=== PATIENT | male | born 1930 | race Caucasian/White ===

== ENCOUNTER 2016-08-25 07:44 | Inpatient (IN) | payer OTHER ==
[~2016-08-25] VITALS: Ht 167.6 cm; Wt 83.5 kg
[~2016-08-25 07:44] MED LIST: ALBU8.5H IH; AMLO2.5T PO; ASPI-1061 PO; ATOR20TA65 PO; FAMO20TA8 PO; METF850T2 PO; TAMS0.4C32 PO; TIOT185 IH
[2016-08-25 08:17] LABS: GLUCOSE,POINT OF CARE 170 MG/DL (70-110)
[2016-08-25 09:03] LABS: BASOPHILS % (AUTO) 0.1 % (0.0-2.0); EOSINOPHILS % (AUTO) 1.1 % (1.0-6.0); HEMATOCRIT 38.5 % (41-53); HEMOGLOBIN 12.2 g/dL (13.5-17.5); LYMPHOCYTES # (AUTO) 2.9 K/uL (1.0-4.8); LYMPHOCYTES % (AUTO) 15.2 % (22.0-44.0); MEAN CORPUSCULAR HEMOGLOBIN 28.1 pg (26.0-34.0); MEAN CORPUSCULAR HGB CONC 31.7 G/dL (31.0-37.0); MEAN CORPUSCULAR VOLUME 89 fL (80-100); MONOCYTES # (AUTO) 1.6 K/uL (0.1-1.0); MONOCYTES % (AUTO) 8.4 % (2.0-9.0); NEUTROPHILS # (AUTO) 14.3 K/uL (1.8-7.7); NEUTROPHILS % (AUTO) 75.2 % (40.0-70.0); PLATELET COUNT (AUTO) 259 K/uL (150-450); RED BLOOD CELL COUNT(AUTO) 4.34 MIL/uL (4.50-5.90); RED CELL DISTRIBUTION WIDTH 16.1 % (11.5-14.5); WHITE BLOOD COUNT (AUTO) 19.1 K/uL (4.5-11.0)
[2016-08-25 09:12] LABS: ANION GAP 8 mmol/L (8-16); CARBON DIOXIDE 26 mmol/L (22-29); CHLORIDE 101 mmol/L (98-107); GLOMERULAR FILTR. RATE CALC > 60 mL/min (>60); SODIUM SERUM 135 mmol/L (136-145); UREA NITROGEN, BLOOD 19 mg/dL (7-18)
[2016-08-25 09:25] LABS: B-TYPE NATRIURETIC PEPTIDE 339 pg/mL (0-100)
[2016-08-25 09:37] LABS: ALANINE AMINOTRANSFERASE 43 U/L (12-78); ALBUMIN 3.5 g/dL (3.4-5.0); ASPARTATE AMINOTRANSFERASE 24 U/L (15-37); BILIRUBIN,TOTAL 0.7 mg/dL (0.1-1.0); CREATINE KINASE MB 1.7 ng/mL (0-5); CREATINE KINASE, TOTAL 135 U/L (39-308); PROTHROMBIN TIME 10.3 SEC (9.4-11.6); TOTAL PROTEIN, SERUM 7.7 g/dL (6.4-8.2)
[2016-08-25] MEDS ORDERED: ALBUTEROL SULFATE 2.5 MG/0.5 ML NEB SOLUTION NEB ONE (10:15)
[2016-08-25] MEDS ORDERED: AZITHROMYCIN 500 MG/NS 250 ML IV ONE (10:15)
[2016-08-25] MEDS ORDERED: IPRATROPIUM BROMIDE 0.5 MG/2.5 ML NEB SOLUTION NEB ONE (10:15)
[2016-08-25] MEDS ORDERED: CefTRIAXone 1 GM/DEXTROSE 50 ML IV ONE (10:15)
[2016-08-25] MEDS ORDERED: 0.9% SODIUM CHLORIDE 10 ML SYRINGE IVP PRN (10:45)
[2016-08-25] MEDS ORDERED: ACETAMINOPHEN 325 MG TABLET PO PRN ×2 (10:45→15:00)
[2016-08-25 10:57] LABS: APPEARANCE,URINE CLEAR (CLEAR); GLUCOSE, URINE (UA) NEGATIVE (NEGATIVE); KETONES,URINE NEGATIVE (NEGATIVE); LEUKOCYTE ESTERASE ,URINE NEGATIVE (NEGATIVE); OCCULT BLOOD,URINE NEGATIVE (NEGATIVE); PROTEIN,URINE POS 1+ (NEGATIVE)
[2016-08-25 10:59] LABS: ADD UA MICROSCOPIC YES
[2016-08-25 11:02] LABS: RBC,URINE None Seen /HPF (0-2); SQUAMOUS EPITHELIAL CELL,UR Rare /LPF (None Seen); WBC,URINE 0-2 /HPF (0-5)
[2016-08-25 11:25] VITALS: BP 156/90
[2016-08-25 12:45] VITALS: BP 162/85
[2016-08-25] MEDS ORDERED: IPRATROPIUM BROMIDE 0.5 MG/2.5 ML NEB SOLUTION NEB PRN ×2 (15:00)
[2016-08-25] MEDS ORDERED: DEXTROSE 50%-WATER 25 GM/50 ML SYRINGE IVP PRN (15:00)
[2016-08-25] MEDS ORDERED: ALBUTEROL SULFATE 2.5 MG/0.5 ML NEB SOLUTION NEB PRN ×2 (15:00)
[2016-08-25] MEDS ORDERED: MAGNESIUM HYDROXIDE SUSPENSION 30 ML UDCUP PO PRN (15:00)
[2016-08-25] MEDS ORDERED: HYDROCODONE/ACETAMINOPHEN 5-325 MG TABLET PO PRN (15:00)
[2016-08-25] MEDS ORDERED: ONDANSETRON HCL 4 MG/2 ML VIAL IVP PRN (15:00)
[2016-08-25] MEDS ORDERED: BISACODYL 10 MG RECTAL RECTAL SUPPOSITORY PR PRN (15:00)
[2016-08-25] MEDS: INSULIN ASPART 100 UNITS/ML SQ PRN ×2 (17:17→21:59)
[2016-08-25] MEDS: HEPARIN SODIUM,PORCINE 5,000 UNITS/ML VIAL SQ SCH (17:21)
[2016-08-25 17:24] VITALS: BP 143/75
[2016-08-25] MEDS: MethylPREDNISolone SOD SUCC 125 MG/2 ML VIAL IVP SCH (17:33)
[2016-08-25 19:29] VITALS: BP 120/58
[2016-08-25] MEDS: MORPHINE SULFATE 4 MG/ML SYRINGE IVP PRN (19:38)
[2016-08-25] MEDS: ALBUTEROL SULFATE 2.5 MG/0.5 ML NEB SOLUTION NEB SCH (20:40)
[2016-08-25] MEDS: IPRATROPIUM BROMIDE 0.5 MG/2.5 ML NEB SOLUTION NEB SCH (20:40)
[2016-08-25] MEDS: GuaiFENesin/CODEINE [SUGAR FREE] 200-20MG/10 ML SYRUP UDCUP PO PRN (21:56)
[2016-08-25] MEDS: DOCUSATE SODIUM 100 MG CAPSULE PO SCH (21:56)
[2016-08-25] MEDS ORDERED: -PHARMACY VACCINE NOTE- MISC ONE ×2 (23:15)
[2016-08-25 23:49] VITALS: BP 124/89
[2016-08-26] MEDS: HEPARIN SODIUM,PORCINE 5,000 UNITS/ML VIAL SQ SCH ×3 (00:09→16:34)
[2016-08-26] MEDS: MethylPREDNISolone SOD SUCC 125 MG/2 ML VIAL IVP SCH ×4 (00:09→17:47)
[2016-08-26] MEDS: ZOLPIDEM TARTRATE 5 MG TABLET PO PRN ×2 (00:10→20:44)
[2016-08-26 04:41] VITALS: BP 123/58
[2016-08-26] MEDS: INSULIN ASPART 100 UNITS/ML SQ PRN ×4 (06:03→20:46)
[2016-08-26 06:37] LABS: BASOPHILS % (AUTO) 0.2 % (0.0-2.0); EOSINOPHILS % (AUTO) 0 % (1.0-6.0); HEMATOCRIT 36.3 % (41-53); HEMOGLOBIN 11.6 g/dL (13.5-17.5); LYMPHOCYTES # (AUTO) 1.7 K/uL (1.0-4.8); LYMPHOCYTES % (AUTO) 11.2 % (22.0-44.0); MEAN CORPUSCULAR HEMOGLOBIN 28.6 pg (26.0-34.0); MEAN CORPUSCULAR VOLUME 89 fL (80-100); MONOCYTES # (AUTO) 0.1 K/uL (0.1-1.0); MONOCYTES % (AUTO) 0.7 % (2.0-9.0); NEUTROPHILS # (AUTO) 13.3 K/uL (1.8-7.7); PLATELET COUNT (AUTO) 253 K/uL (150-450); RED BLOOD CELL COUNT(AUTO) 4.07 MIL/uL (4.50-5.90); RED CELL DISTRIBUTION WIDTH 15.5 % (11.5-14.5); WHITE BLOOD COUNT (AUTO) 15.2 K/uL (4.5-11.0)
[2016-08-26 06:56] LABS: NEUTROPHILS % (AUTO) 87.9 % (40.0-70.0)
[2016-08-26 07:09] VITALS: BP 129/70
[2016-08-26 07:12] LABS: ALANINE AMINOTRANSFERASE 52 U/L (12-78); ANION GAP 13 mmol/L (8-16); ASPARTATE AMINOTRANSFERASE 29 U/L (15-37); BILIRUBIN,TOTAL 0.6 mg/dL (0.1-1.0); CALCIUM, TOTAL 8.3 mg/dL (8.8-10.5); CARBON DIOXIDE 24 mmol/L (22-29); CHLORIDE 98 mmol/L (98-107); CREATININE 1.09 mg/dL (0.60-1.30); GLOMERULAR FILTR. RATE CALC > 60 mL/min (>60); SODIUM SERUM 135 mmol/L (136-145); TOTAL PROTEIN, SERUM 7.1 g/dL (6.4-8.2); UREA NITROGEN, BLOOD 29 mg/dL (7-18)
[2016-08-26] MEDS: ALBUTEROL SULFATE 2.5 MG/0.5 ML NEB SOLUTION NEB SCH ×3 (08:00→19:35)
[2016-08-26] MEDS: IPRATROPIUM BROMIDE 0.5 MG/2.5 ML NEB SOLUTION NEB SCH ×3 (08:00→19:35)
[2016-08-26] MEDS: PANTOPRAZOLE SODIUM 40 MG/VIAL IVP SCH (08:57)
[2016-08-26] MEDS: DOCUSATE SODIUM 100 MG CAPSULE PO SCH ×2 (08:58→20:44)
[2016-08-26] MEDS: MORPHINE SULFATE 4 MG/ML SYRINGE IVP PRN ×2 (08:59→20:07)
[2016-08-26] MEDS: GuaiFENesin/CODEINE [SUGAR FREE] 200-20MG/10 ML SYRUP UDCUP PO PRN ×2 (09:00→16:35)
[2016-08-26] MEDS ORDERED: SODIUM CHLORIDE 0.9% 500 ML IV ONE (10:39)
[2016-08-26] MEDS: AZITHROMYCIN 500 MG/NS 250 ML IV SCH (10:46)
[2016-08-26 11:09] VITALS: BP 130/74
[2016-08-26] MEDS: CefTRIAXone SODIUM 2 GM in DEXTROSE 5%-WATER 50 ML IV SCH (12:15)
[2016-08-26 16:26] VITALS: BP 138/69
[2016-08-26 17:33] LABS: GLUCOSE COMMENT 1 Received Meds; GLUCOSE,POINT OF CARE 243 MG/DL (70-110)
[2016-08-26] MEDS ORDERED: INSULIN ASPART 100 UNITS/ML SQ ONE (17:45)
[2016-08-26] MEDS ORDERED: 0.9% SODIUM CHLORIDE 10 ML SYRINGE IVP PRN (18:30)
[2016-08-26 19:02] LABS: GLUCOSE COMMENT 1 Received Meds; GLUCOSE,POINT OF CARE 200 MG/DL (70-110)
[2016-08-26 20:00] VITALS: BP 128/75
[2016-08-26 20:02] LABS: GLUCOSE COMMENT 1 Received Meds; GLUCOSE,POINT OF CARE 390 MG/DL (70-110)
[2016-08-27 00:01] VITALS: BP 114/84
[2016-08-27] MEDS: GuaiFENesin/CODEINE [SUGAR FREE] 200-20MG/10 ML SYRUP UDCUP PO PRN ×4 (00:14→20:58)
[2016-08-27] MEDS: MethylPREDNISolone SOD SUCC 125 MG/2 ML VIAL IVP SCH ×5 (00:15→23:24)
[2016-08-27] MEDS: HEPARIN SODIUM,PORCINE 5,000 UNITS/ML VIAL SQ SCH ×4 (00:15→23:24)
[2016-08-27] MEDS: MORPHINE SULFATE 4 MG/ML SYRINGE IVP PRN ×3 (04:51→19:29)
[2016-08-27 05:26] VITALS: BP 140/74
[2016-08-27] MEDS: INSULIN ASPART 100 UNITS/ML SQ PRN ×4 (06:04→20:59)
[2016-08-27 07:22] LABS: GLUCOSE COMMENT 1 Received Meds; GLUCOSE,POINT OF CARE 287 MG/DL (70-110)
[2016-08-27 08:10] VITALS: BP 156/80
[2016-08-27] MEDS: IPRATROPIUM BROMIDE 0.5 MG/2.5 ML NEB SOLUTION NEB SCH ×3 (09:04→20:09)
[2016-08-27] MEDS: ALBUTEROL SULFATE 2.5 MG/0.5 ML NEB SOLUTION NEB SCH ×3 (09:04→20:09)
[2016-08-27] MEDS: PANTOPRAZOLE SODIUM 40 MG/VIAL IVP SCH (09:05)
[2016-08-27] MEDS: DOCUSATE SODIUM 100 MG CAPSULE PO SCH ×2 (09:05→20:58)
[2016-08-27] MEDS: AZITHROMYCIN 500 MG/NS 250 ML IV SCH (10:35)
[2016-08-27 11:03] VITALS: BP 114/60
[2016-08-27] MEDS: CefTRIAXone SODIUM 2 GM in DEXTROSE 5%-WATER 50 ML IV SCH (12:04)
[2016-08-27] MEDS ORDERED: AMLO-511 PO (13:58)
[2016-08-27 15:39] VITALS: BP 120/69
[2016-08-27 15:58] LABS: EOSINOPHILS % (AUTO) 0 % (1.0-6.0); HEMATOCRIT 35.6 % (41-53); HEMOGLOBIN 11.3 g/dL (13.5-17.5); LYMPHOCYTES # (AUTO) 1.4 K/uL (1.0-4.8); LYMPHOCYTES % (AUTO) 5.6 % (22.0-44.0); MEAN CORPUSCULAR HEMOGLOBIN 28.2 pg (26.0-34.0); MEAN CORPUSCULAR HGB CONC 31.6 G/dL (31.0-37.0); MEAN CORPUSCULAR VOLUME 89 fL (80-100); MONOCYTES # (AUTO) 1.1 K/uL (0.1-1.0); MONOCYTES % (AUTO) 4.5 % (2.0-9.0); NEUTROPHILS # (AUTO) 22.5 K/uL (1.8-7.7); PLATELET COUNT (AUTO) 286 K/uL (150-450); RED BLOOD CELL COUNT(AUTO) 3.99 MIL/uL (4.50-5.90); RED CELL DISTRIBUTION WIDTH 15.4 % (11.5-14.5); WHITE BLOOD COUNT (AUTO) 25.1 K/uL (4.5-11.0)
[2016-08-27] MEDS: BENZONATATE 100 MG CAPSULE PO SCH ×2 (16:00→23:23)
[2016-08-27 16:03] LABS: NEUTROPHILS % (AUTO) 89.9 % (40.0-70.0)
[2016-08-27 16:10] LABS: CALCIUM, TOTAL 8.1 mg/dL (8.8-10.5); CREATININE 1.26 mg/dL (0.60-1.30); POTASSIUM 3.9 mmol/L (3.5-5.1)
[2016-08-27 16:15] LABS: ALBUMIN 3.3 g/dL (3.4-5.0); BILIRUBIN,TOTAL 0.2 mg/dL (0.1-1.0); TOTAL PROTEIN, SERUM 7.3 g/dL (6.4-8.2)
[2016-08-27 16:20] LABS: RBC MORPHOLOGY COMMENT ABNORMAL RBC MORPH
[2016-08-27 18:07] LABS: GLUCOSE COMMENT 1 Received Meds; GLUCOSE,POINT OF CARE 293 MG/DL (70-110)
[2016-08-27 18:18] LABS: GLUCOSE COMMENT 1 Received Meds; GLUCOSE,POINT OF CARE 489 MG/DL (70-110)
[2016-08-27 18:18] LABS: GLUCOSE,POINT OF CARE 390 MG/DL (70-110)
[2016-08-27] MEDS ORDERED: IOVERSOL 350 MG/ML 100 ML VIAL ONE (18:26)
[2016-08-27 20:02] VITALS: BP 147/65
[2016-08-27] MEDS: ZOLPIDEM TARTRATE 5 MG TABLET PO PRN (23:28)
[2016-08-28] VITALS (7 sets, daily range): BP systolic 124–146; BP diastolic 69–96
[2016-08-28] MEDS: MethylPREDNISolone SOD SUCC 125 MG/2 ML VIAL IVP SCH ×4 (05:46→23:28)
[2016-08-28] MEDS: INSULIN ASPART 100 UNITS/ML SQ PRN ×3 (05:49→20:22)
[2016-08-28] MEDS: GuaiFENesin/CODEINE [SUGAR FREE] 200-20MG/10 ML SYRUP UDCUP PO PRN ×3 (05:53→23:29)
[2016-08-28] MEDS: HEPARIN SODIUM,PORCINE 5,000 UNITS/ML VIAL SQ SCH ×3 (08:07→23:28)
[2016-08-28] MEDS: BENZONATATE 100 MG CAPSULE PO SCH ×3 (08:07→23:28)
[2016-08-28] MEDS: DOCUSATE SODIUM 100 MG CAPSULE PO SCH ×2 (08:07→20:10)
[2016-08-28] MEDS: ALBUTEROL SULFATE 2.5 MG/0.5 ML NEB SOLUTION NEB SCH ×3 (09:20→20:18)
[2016-08-28] MEDS: IPRATROPIUM BROMIDE 0.5 MG/2.5 ML NEB SOLUTION NEB SCH ×3 (09:20→20:18)
[2016-08-28] MEDS: PANTOPRAZOLE SODIUM 40 MG/VIAL IVP SCH (09:48)
[2016-08-28] MEDS: AZITHROMYCIN 500 MG/NS 250 ML IV SCH (09:48)
[2016-08-28] MEDS: CefTRIAXone SODIUM 2 GM in DEXTROSE 5%-WATER 50 ML IV SCH (09:48)
[2016-08-28] MEDS ORDERED: FUROSEMIDE 40 MG/4 ML VIAL IVP ONE (12:30)
[2016-08-28 16:12] LABS: BASOPHILS % (AUTO) 0.2 % (0.0-2.0); EOSINOPHILS % (AUTO) 0 % (1.0-6.0); HEMATOCRIT 37.4 % (41-53); HEMOGLOBIN 11.8 g/dL (13.5-17.5); LYMPHOCYTES # (AUTO) 1.5 K/uL (1.0-4.8); LYMPHOCYTES % (AUTO) 7.3 % (22.0-44.0); MEAN CORPUSCULAR HEMOGLOBIN 28.2 pg (26.0-34.0); MEAN CORPUSCULAR HGB CONC 31.5 G/dL (31.0-37.0); MEAN CORPUSCULAR VOLUME 90 fL (80-100); MONOCYTES # (AUTO) 0.8 K/uL (0.1-1.0); MONOCYTES % (AUTO) 3.8 % (2.0-9.0); NEUTROPHILS # (AUTO) 17.9 K/uL (1.8-7.7); PLATELET COUNT (AUTO) 316 K/uL (150-450); RED BLOOD CELL COUNT(AUTO) 4.17 MIL/uL (4.50-5.90); RED CELL DISTRIBUTION WIDTH 15.8 % (11.5-14.5); WHITE BLOOD COUNT (AUTO) 20.1 K/uL (4.5-11.0)
[2016-08-28 16:22] LABS: NEUTROPHILS % (AUTO) 88.7 % (40.0-70.0)
[2016-08-28 16:27] LABS: ALBUMIN 3.3 g/dL (3.4-5.0); BILIRUBIN,TOTAL 0.4 mg/dL (0.1-1.0); CALCIUM, TOTAL 8.3 mg/dL (8.8-10.5); CREATININE 1.45 mg/dL (0.60-1.30); POTASSIUM 3.5 mmol/L (3.5-5.1); TOTAL PROTEIN, SERUM 7.3 g/dL (6.4-8.2)
[2016-08-28] MEDS ORDERED: INSULIN ASPART 100 UNITS/ML SQ ONE (17:00)
[2016-08-28] MEDS: ATORVASTATIN CALCIUM 20 MG TABLET PO SCH (20:10)
[2016-08-28] MEDS: ZOLPIDEM TARTRATE 5 MG TABLET PO PRN (23:34)
[2016-08-29 01:02] LABS: GLUCOSE COMMENT 1 Received Meds; GLUCOSE,POINT OF CARE 336 MG/DL (70-110)
[2016-08-29 01:07] LABS: GLUCOSE,POINT OF CARE 298 MG/DL (70-110)
[2016-08-29 03:37] LABS: GLUCOSE COMMENT 1 Received Meds; GLUCOSE,POINT OF CARE 191 MG/DL (70-110)
[2016-08-29 04:00] VITALS: BP 155/90
[2016-08-29] MEDS: MethylPREDNISolone SOD SUCC 125 MG/2 ML VIAL IVP SCH ×4 (05:36→23:11)
[2016-08-29] MEDS: INSULIN ASPART 100 UNITS/ML SQ PRN ×4 (05:37→21:06)
[2016-08-29] MEDS: GuaiFENesin/CODEINE [SUGAR FREE] 200-20MG/10 ML SYRUP UDCUP PO PRN (05:39)
[2016-08-29 05:58] LABS: BASOPHILS % (AUTO) 0.1 % (0.0-2.0); EOSINOPHILS % (AUTO) 0.1 % (1.0-6.0); HEMATOCRIT 38.4 % (41-53); HEMOGLOBIN 12.1 g/dL (13.5-17.5); LYMPHOCYTES # (AUTO) 1.9 K/uL (1.0-4.8); LYMPHOCYTES % (AUTO) 10.8 % (22.0-44.0); MEAN CORPUSCULAR HEMOGLOBIN 28.4 pg (26.0-34.0); MEAN CORPUSCULAR HGB CONC 31.6 G/dL (31.0-37.0); MEAN CORPUSCULAR VOLUME 90 fL (80-100); MONOCYTES # (AUTO) 0.7 K/uL (0.1-1.0); MONOCYTES % (AUTO) 4.3 % (2.0-9.0); NEUTROPHILS # (AUTO) 14.8 K/uL (1.8-7.7); NEUTROPHILS % (AUTO) 84.7 % (40.0-70.0); PLATELET COUNT (AUTO) 316 K/uL (150-450); RED BLOOD CELL COUNT(AUTO) 4.28 MIL/uL (4.50-5.90); RED CELL DISTRIBUTION WIDTH 15.8 % (11.5-14.5); WHITE BLOOD COUNT (AUTO) 17.5 K/uL (4.5-11.0)
[2016-08-29 06:08] LABS: ALANINE AMINOTRANSFERASE 82 U/L (12-78); ALBUMIN 3.2 g/dL (3.4-5.0); ANION GAP 6 mmol/L (8-16); ASPARTATE AMINOTRANSFERASE 33 U/L (15-37); BILIRUBIN,TOTAL 0.5 mg/dL (0.1-1.0); CALCIUM, TOTAL 8.2 mg/dL (8.8-10.5); CARBON DIOXIDE 32 mmol/L (22-29); CHLORIDE 100 mmol/L (98-107); CREATININE 0.94 mg/dL (0.60-1.30); GLOMERULAR FILTR. RATE CALC > 60 mL/min (>60); POTASSIUM 3.6 mmol/L (3.5-5.1); SODIUM SERUM 138 mmol/L (136-145); TOTAL PROTEIN, SERUM 7.1 g/dL (6.4-8.2); UREA NITROGEN, BLOOD 27 mg/dL (7-18)
[2016-08-29 07:01] VITALS: BP 148/81
[2016-08-29] MEDS: BENZONATATE 100 MG CAPSULE PO SCH ×3 (08:24→23:11)
[2016-08-29] MEDS: DOCUSATE SODIUM 100 MG CAPSULE PO SCH ×2 (08:25→20:11)
[2016-08-29] MEDS: TIOTROPIUM BROMIDE 18 MCG/INH HANDIHALER [5] IH SCH (08:25)
[2016-08-29] MEDS: HEPARIN SODIUM,PORCINE 5,000 UNITS/ML VIAL SQ SCH ×3 (08:25→23:11)
[2016-08-29] MEDS: PANTOPRAZOLE SODIUM 40 MG/VIAL IVP SCH (08:25)
[2016-08-29] MEDS: ASPIRIN 81 MG EC TABLET PO SCH (08:26)
[2016-08-29] MEDS: TAMSULOSIN HCL 0.4 MG CAPSULE PO SCH (08:26)
[2016-08-29] MEDS: AmLODIPine BESYLATE 5 MG TABLET PO SCH (08:26)
[2016-08-29] MEDS: IPRATROPIUM BROMIDE 0.5 MG/2.5 ML NEB SOLUTION NEB SCH ×3 (09:02→19:55)
[2016-08-29] MEDS: ALBUTEROL SULFATE 2.5 MG/0.5 ML NEB SOLUTION NEB SCH ×3 (09:02→19:55)
[2016-08-29] MEDS: AZITHROMYCIN 500 MG/NS 250 ML IV SCH (09:41)
[2016-08-29 10:54] VITALS: BP 140/83
[2016-08-29] MEDS: CefTRIAXone SODIUM 2 GM in DEXTROSE 5%-WATER 50 ML IV SCH (11:26)
[2016-08-29 11:27] LABS: GLUCOSE COMMENT 1 Received Meds; GLUCOSE,POINT OF CARE 355 MG/DL (70-110)
[2016-08-29 13:47] LABS: GLUCOSE COMMENT 1 Received Meds; GLUCOSE,POINT OF CARE 378 MG/DL (70-110)
[2016-08-29 13:48] LABS: GLUCOSE COMMENT 1 Received Meds; GLUCOSE,POINT OF CARE 361 MG/DL (70-110)
[2016-08-29 13:52] LABS: GLUCOSE COMMENT 1 Received Meds; GLUCOSE,POINT OF CARE 435 MG/DL (70-110)
[2016-08-29] MEDS: MORPHINE SULFATE 4 MG/ML SYRINGE IVP PRN ×2 (14:08→20:12)
[2016-08-29 15:10] VITALS: BP 132/91
[2016-08-29 19:50] VITALS: BP 148/69
[2016-08-29] MEDS: BUDESONIDE 0.5 MG/2 ML NEB SOLUTION NEB SCH (19:56)
[2016-08-29 20:01] LABS: GLUCOSE COMMENT 1 Received Meds; GLUCOSE,POINT OF CARE 366 MG/DL (70-110)
[2016-08-29 20:02] LABS: GLUCOSE COMMENT 1 Received Meds; GLUCOSE,POINT OF CARE 313 MG/DL (70-110)
[2016-08-29] MEDS: OXYGEN THERAPY IH SCH (20:11)
[2016-08-29] MEDS: ATORVASTATIN CALCIUM 20 MG TABLET PO SCH (20:11)
[2016-08-29] MEDS: INSULIN DETEMIR 100 UNITS/ML SQ SCH (21:06)
[2016-08-29 23:45] VITALS: BP 139/72
[2016-08-30 04:13] VITALS: BP 151/88
[2016-08-30] MEDS: MethylPREDNISolone SOD SUCC 125 MG/2 ML VIAL IVP SCH ×4 (05:20→23:00)
[2016-08-30] MEDS: INSULIN ASPART 100 UNITS/ML SQ PRN ×4 (05:38→19:59)
[2016-08-30 06:32] LABS: GLUCOSE COMMENT 1 Received Meds; GLUCOSE,POINT OF CARE 236 MG/DL (70-110)
[2016-08-30 06:36] LABS: BASOPHILS # (AUTO) 0.05 K/uL (0.00-0.20); BASOPHILS % (AUTO) 0.3 % (0.0-2.0); EOSINOPHILS % (AUTO) 0.03 % (1.0-6.0); HEMOGLOBIN 13.1 g/dL (13.5-17.5); LYMPHOCYTES # (AUTO) 2.3 K/uL (1.0-4.8); LYMPHOCYTES % (AUTO) 13.9 % (22.0-44.0); MEAN CORPUSCULAR HEMOGLOBIN 29.3 pg (26.0-34.0); MEAN CORPUSCULAR HGB CONC 32.7 G/dL (31.0-37.0); MEAN CORPUSCULAR VOLUME 90 fL (80-100); MONOCYTES # (AUTO) 0.6 K/uL (0.1-1.0); MONOCYTES % (AUTO) 3.7 % (2.0-9.0); NEUTROPHILS # (AUTO) 13.4 K/uL (1.8-7.7); NEUTROPHILS % (AUTO) 82.1 % (40.0-70.0); PLATELET COUNT (AUTO) 322 K/uL (150-450); RED BLOOD CELL COUNT(AUTO) 4.46 MIL/uL (4.50-5.90); RED CELL DISTRIBUTION WIDTH 15.5 % (11.5-14.5); WHITE BLOOD COUNT (AUTO) 16.3 K/uL (4.5-11.0)
[2016-08-30 07:06] VITALS: BP 152/90
[2016-08-30] MEDS: OXYGEN THERAPY IH SCH ×2 (07:08→20:00)
[2016-08-30] MEDS: ALBUTEROL SULFATE 2.5 MG/0.5 ML NEB SOLUTION NEB SCH ×3 (07:08→19:54)
[2016-08-30] MEDS: IPRATROPIUM BROMIDE 0.5 MG/2.5 ML NEB SOLUTION NEB SCH ×3 (07:08→19:54)
[2016-08-30 07:15] LABS: ALANINE AMINOTRANSFERASE 83 U/L (12-78); ALBUMIN 3.1 g/dL (3.4-5.0); ANION GAP 9 mmol/L (8-16); ASPARTATE AMINOTRANSFERASE 28 U/L (15-37); BILIRUBIN,TOTAL 0.7 mg/dL (0.1-1.0); CALCIUM, TOTAL 8.1 mg/dL (8.8-10.5); CARBON DIOXIDE 31 mmol/L (22-29); CHLORIDE 99 mmol/L (98-107); CREATININE 0.74 mg/dL (0.60-1.30); GLOMERULAR FILTR. RATE CALC > 60 mL/min (>60); SODIUM SERUM 139 mmol/L (136-145); TOTAL PROTEIN, SERUM 6.8 g/dL (6.4-8.2); UREA NITROGEN, BLOOD 21 mg/dL (7-18)
[2016-08-30 07:22] LABS: GLUCOSE COMMENT 1 Received Meds; GLUCOSE,POINT OF CARE 164 MG/DL (70-110)
[2016-08-30 07:39] LABS: POTASSIUM 2.9 mmol/L (3.5-5.1)
[2016-08-30] MEDS: TIOTROPIUM BROMIDE 18 MCG/INH HANDIHALER [5] IH SCH (08:12)
[2016-08-30] MEDS: HEPARIN SODIUM,PORCINE 5,000 UNITS/ML VIAL SQ SCH ×3 (08:12→23:00)
[2016-08-30] MEDS: BENZONATATE 100 MG CAPSULE PO SCH ×3 (08:12→23:00)
[2016-08-30] MEDS: PANTOPRAZOLE SODIUM 40 MG/VIAL IVP SCH (08:13)
[2016-08-30] MEDS: DOCUSATE SODIUM 100 MG CAPSULE PO SCH ×2 (08:14→19:56)
[2016-08-30] MEDS: ASPIRIN 81 MG EC TABLET PO SCH (08:14)
[2016-08-30] MEDS: AmLODIPine BESYLATE 5 MG TABLET PO SCH (08:14)
[2016-08-30] MEDS: TAMSULOSIN HCL 0.4 MG CAPSULE PO SCH (08:14)
[2016-08-30] MEDS: INSULIN DETEMIR 100 UNITS/ML SQ SCH ×2 (08:16→19:57)
[2016-08-30] MEDS ORDERED: SODIUM CHLORIDE 0.9% 100 ML ONE (08:57)
[2016-08-30] MEDS: AZITHROMYCIN 500 MG/NS 250 ML IV SCH (09:21)
[2016-08-30] MEDS: CefTRIAXone SODIUM 2 GM in DEXTROSE 5%-WATER 50 ML IV SCH (10:45)
[2016-08-30] MEDS ORDERED: POTASSIUM CHLORIDE 10% 40 MEQ/30 ML LIQUID UDCUP PO ONE (11:15)
[2016-08-30] MEDS ORDERED: ACET-2247 PO (11:19)
[2016-08-30] MEDS ORDERED: AUD NEB (11:20)
[2016-08-30] MEDS ORDERED: AZIT250T6 PO (11:20)
[2016-08-30] MEDS ORDERED: BENZ-26 PO (11:21)
[2016-08-30] MEDS ORDERED: CEFX1I IV (11:22)
[2016-08-30] MEDS ORDERED: BUDE0.5A3 NEB (11:22)
[2016-08-30] MEDS ORDERED: IPRNEB IH (11:23)
[2016-08-30] MEDS ORDERED: INSU100V12 SQ (11:23)
[2016-08-30] MEDS ORDERED: PRED20 PO ×2 (11:24→11:25)
[2016-08-30] MEDS ORDERED: PANT40TA25 PO (11:26)
[2016-08-30] MEDS ORDERED: PRED5 PO (11:26)
[2016-08-30 11:33] VITALS: BP 158/86
[2016-08-30] MEDS ORDERED: 0.9% SODIUM CHLORIDE 5 ML NEB SOLUTION NEB ONE (11:55)
[2016-08-30] MEDS: BUDESONIDE 0.5 MG/2 ML NEB SOLUTION NEB SCH ×2 (11:59→20:50)
[2016-08-30 15:30] VITALS: BP 145/75
[2016-08-30 19:29] VITALS: BP 163/91
[2016-08-30] MEDS: ATORVASTATIN CALCIUM 20 MG TABLET PO SCH (19:56)
[2016-08-30 22:51] VITALS: BP 125/78
[2016-08-31 01:07] LABS: GLUCOSE COMMENT 1 Received Meds; GLUCOSE,POINT OF CARE 294 MG/DL (70-110)
[2016-08-31 01:11] LABS: GLUCOSE COMMENT 1 Received Meds; GLUCOSE,POINT OF CARE 299 MG/DL (70-110)
[2016-08-31 04:30] VITALS: BP 152/91
[2016-08-31] MEDS: MethylPREDNISolone SOD SUCC 125 MG/2 ML VIAL IVP SCH (05:36)
[2016-08-31] MEDS: INSULIN ASPART 100 UNITS/ML SQ PRN ×3 (05:37→17:12)
[2016-08-31 06:08] LABS: BASOPHILS % (AUTO) 0.3 % (0.0-2.0); EOSINOPHILS % (AUTO) 0 % (1.0-6.0); HEMATOCRIT 39.8 % (41-53); LYMPHOCYTES # (AUTO) 2.8 K/uL (1.0-4.8); LYMPHOCYTES % (AUTO) 15.7 % (22.0-44.0); MEAN CORPUSCULAR HEMOGLOBIN 29.3 pg (26.0-34.0); MEAN CORPUSCULAR HGB CONC 32.6 G/dL (31.0-37.0); MEAN CORPUSCULAR VOLUME 90 fL (80-100); MONOCYTES # (AUTO) 1.1 K/uL (0.1-1.0); MONOCYTES % (AUTO) 6.1 % (2.0-9.0); NEUTROPHILS # (AUTO) 13.8 K/uL (1.8-7.7); NEUTROPHILS % (AUTO) 77.9 % (40.0-70.0); PLATELET COUNT (AUTO) 332 K/uL (150-450); RED BLOOD CELL COUNT(AUTO) 4.44 MIL/uL (4.50-5.90); RED CELL DISTRIBUTION WIDTH 15.8 % (11.5-14.5); WHITE BLOOD COUNT (AUTO) 17.7 K/uL (4.5-11.0)
[2016-08-31 06:20] LABS: ALANINE AMINOTRANSFERASE 98 U/L (12-78); ALBUMIN 2.9 g/dL (3.4-5.0); ANION GAP 5 mmol/L (8-16); ASPARTATE AMINOTRANSFERASE 35 U/L (15-37); BILIRUBIN,TOTAL 0.6 mg/dL (0.1-1.0); CARBON DIOXIDE 32 mmol/L (22-29); CHLORIDE 100 mmol/L (98-107); CREATININE 0.81 mg/dL (0.60-1.30); GLOMERULAR FILTR. RATE CALC > 60 mL/min (>60); POTASSIUM 3.5 mmol/L (3.5-5.1); SODIUM SERUM 137 mmol/L (136-145); TOTAL PROTEIN, SERUM 6.5 g/dL (6.4-8.2); UREA NITROGEN, BLOOD 26 mg/dL (7-18)
[2016-08-31 07:09] VITALS: BP 156/87
[2016-08-31 07:47] LABS: GLUCOSE COMMENT 1 Received Meds; GLUCOSE,POINT OF CARE 331 MG/DL (70-110)
[2016-08-31] MEDS: BUDESONIDE 0.5 MG/2 ML NEB SOLUTION NEB SCH (07:58)
[2016-08-31] MEDS: IPRATROPIUM BROMIDE 0.5 MG/2.5 ML NEB SOLUTION NEB SCH ×2 (07:58→15:26)
[2016-08-31] MEDS: ALBUTEROL SULFATE 2.5 MG/0.5 ML NEB SOLUTION NEB SCH ×2 (07:58→15:26)
[2016-08-31] MEDS: PANTOPRAZOLE SODIUM 40 MG/VIAL IVP SCH (08:26)
[2016-08-31] MEDS: TAMSULOSIN HCL 0.4 MG CAPSULE PO SCH (08:26)
[2016-08-31] MEDS: BENZONATATE 100 MG CAPSULE PO SCH ×2 (08:26→16:18)
[2016-08-31] MEDS: HEPARIN SODIUM,PORCINE 5,000 UNITS/ML VIAL SQ SCH ×2 (08:26→16:18)
[2016-08-31] MEDS: TIOTROPIUM BROMIDE 18 MCG/INH HANDIHALER [5] IH SCH (08:27)
[2016-08-31] MEDS: ASPIRIN 81 MG EC TABLET PO SCH (08:27)
[2016-08-31] MEDS: AmLODIPine BESYLATE 5 MG TABLET PO SCH (08:27)
[2016-08-31] MEDS: DOCUSATE SODIUM 100 MG CAPSULE PO SCH (08:27)
[2016-08-31] MEDS: INSULIN DETEMIR 100 UNITS/ML SQ SCH (08:29)
[2016-08-31] MEDS: OXYGEN THERAPY IH SCH (08:30)
[2016-08-31] MEDS ORDERED: PredniSONE 20 MG TABLET PO SCH (09:00)
[2016-08-31] MEDS: AZITHROMYCIN 500 MG/NS 250 ML IV SCH (09:58)
[2016-08-31 10:58] VITALS: BP 154/90
[2016-08-31] MEDS: CefTRIAXone SODIUM 2 GM in DEXTROSE 5%-WATER 50 ML IV SCH (11:05)
[2016-08-31 11:52] LABS: GLUCOSE COMMENT 1 Received Meds; GLUCOSE,POINT OF CARE 294 MG/DL (70-110)
[2016-08-31 14:56] VITALS: BP 150/82
[2016-08-31 21:27] LABS: GLUCOSE,POINT OF CARE 128 MG/DL (70-110)
[2016-08-31 21:42] LABS: GLUCOSE COMMENT 1 Received Meds; GLUCOSE,POINT OF CARE 453 MG/DL (70-110)
== END 2016-08-31 19:20 | DRG 871 ==
LOC: EMS 07:50 → AHU 10:42 → 5S 12:49
PROVIDERS: ADMIT Hospitalist; ATTEND Hospitalist
DX: A41.9 Sepsis, unspecified organism (principal); J18.9 Pneumonia, unspecified organism; J44.1 Chronic obstructive pulmonary disease with (acute) exacerbation; J44.0 Chronic obstructive pulmonary disease with (acute) lower respiratory infection; J45.901 Unspecified asthma with (acute) exacerbation; I50.30 Unspecified diastolic (congestive) heart failure; N40.0 Benign prostatic hyperplasia without lower urinary tract symptoms; E78.5 Hyperlipidemia, unspecified; I10 Essential (primary) hypertension; D71 Functional disorders of polymorphonuclear neutrophils; K21.9 Gastro-esophageal reflux disease without esophagitis; Z82.49 Family history of ischemic heart disease and other diseases of the circulatory system; Z83.3 Family history of diabetes mellitus; E11.42 Type 2 diabetes mellitus with diabetic polyneuropathy; Z87.81 Personal history of (healed) traumatic fracture; I11.0 Hypertensive heart disease with heart failure
CPT/HCPCS: 71260; 82962; 87040; 93005; 93306; 93970; 94640; 96365; 97162; 99285; C9113; J0456; J0696; J1644; J1815; J1940; J2270; J2930; J7040; J7050; J7060

== ENCOUNTER 2019-05-26 11:43 | Inpatient (IN) | payer OTHER ==
[~2019-05-26] VITALS: Ht 167.6 cm; Wt 78.3 kg
[~2019-05-26 11:43] MED LIST changes: +ACET-2247 PO; -ALBU8.5H IH; +ALBU8.5H8 IH; -AMLO2.5T PO; +AMLO5TAB9 PO; -ASPI-1061 PO; +ASPI81TA87 PO; +AUD NEB; +AZIT250T9 PO; +BENZ-51 PO; +BUDE0.5A3 NEB; +CEFX1I IV; +INSU100V12 SQ; +IPRNEB IH; +METF-961 PO; -METF850T2 PO; +PANT40TA25 PO; +PRED20 PO; +PRED5 PO; +TAMS-13 PO; -TAMS0.4C32 PO
[2019-05-26 12:04] LABS: GLUCOSE,POINT OF CARE 273 MG/DL (70-110)
[2019-05-26] MEDS ORDERED: CHOL100018 PO (12:04)
[2019-05-26] MEDS ORDERED: DUTA.5 PO (12:04)
[2019-05-26] MEDS ORDERED: TEMA15CA PO (12:04)
[2019-05-26] MEDS ORDERED: CILO2.5OS OD (12:04)
[2019-05-26] MEDS ORDERED: TRAM50TA4 PO (12:04)
[2019-05-26] MEDS ORDERED: INSU100I26 SQ (12:04)
[2019-05-26] MEDS ORDERED: SERT50TA12 PO (12:04)
[2019-05-26] MEDS ORDERED: INSU100I3 SQ (12:04)
[2019-05-26] MEDS ORDERED: ATOR20TA86 PO (12:04)
[2019-05-26] MEDS ORDERED: BESI5OS OD (12:12)
[2019-05-26] MEDS ORDERED: GATI2.5D4 OD (12:12)
[2019-05-26] MEDS ORDERED: DICL2.5D8 OD (12:12)
[2019-05-26] MEDS ORDERED: TELM1TAB32 PO (12:12)
[2019-05-26] MEDS ORDERED: BROM5DRO3 OD (12:12)
[2019-05-26] MEDS ORDERED: AMLO10TA7 PO (12:12)
[2019-05-26] MEDS ORDERED: NEPA1.7D OD (12:12)
[2019-05-26] MEDS ORDERED: UMEC62.5 IH (12:12)
[2019-05-26] MEDS ORDERED: PRED5DRO25 OD (12:12)
[2019-05-26 12:26] LABS: BASOPHILS % (AUTO) 0.8 % (0.0-2.0); HEMATOCRIT 44.4 % (41-53); HEMOGLOBIN 14.4 g/dL (13.5-17.5); LYMPHOCYTES # (AUTO) 3.9 K/uL (1.0-4.8); MEAN CORPUSCULAR HEMOGLOBIN 27.6 pg (26.0-34.0); MEAN CORPUSCULAR HGB CONC 32.4 G/dL (31.0-37.0); MEAN CORPUSCULAR VOLUME 85 fL (80-100); MONOCYTES # (AUTO) 0.9 K/uL (0.1-1.0); MONOCYTES % (AUTO) 7.9 % (2.0-9.0); NEUTROPHILS # (AUTO) 5.8 K/uL (1.8-7.7); NEUTROPHILS % (AUTO) 52.3 % (40.0-70.0); PLATELET COUNT (AUTO) 191 K/uL (150-450); RED BLOOD CELL COUNT(AUTO) 5.22 MIL/uL (4.50-5.90); RED CELL DISTRIBUTION WIDTH 16.2 % (11.5-14.5)
[2019-05-26 12:43] LABS: PROTHROMBIN TIME 10.6 SEC (9.4-11.6)
[2019-05-26 12:45] LABS: ANION GAP 9 mmol/L (8-16); CALCIUM, TOTAL 9.3 mg/dL (8.8-10.5); CARBON DIOXIDE 27 mmol/L (22-29); CHLORIDE 99 mmol/L (98-107); CREATININE 1.01 mg/dL (0.60-1.30); GLOMERULAR FILTR. RATE CALC > 60 mL/min (>60); GLUCOSE,RANDOM 235 mg/dL (70-110); POTASSIUM 4.7 mmol/L (3.5-5.1); SODIUM SERUM 135 mmol/L (136-145); UREA NITROGEN, BLOOD 22 mg/dL (7-18)
[2019-05-26 12:47] LABS: ALANINE AMINOTRANSFERASE 36 U/L (12-78); ALBUMIN 3.8 g/dL (3.4-5.0); ALKALINE PHOSPHATASE 120 U/L (46-116); ASPARTATE AMINOTRANSFERASE 27 U/L (15-37); BILIRUBIN,TOTAL 0.9 mg/dL (0.1-1.0); LIPASE 90 U/L (73-393); TOTAL PROTEIN, SERUM 7.6 g/dL (6.4-8.2)
[2019-05-26 12:48] LABS: B-TYPE NATRIURETIC PEPTIDE 82 pg/mL (0-100)
[2019-05-26 14:15] LABS: APPEARANCE,URINE CLEAR (CLEAR); BILIRUBIN,URINE NEGATIVE (NEGATIVE); GLUCOSE, URINE (UA) 250 mg/dL (NEGATIVE); KETONES,URINE NEGATIVE (NEGATIVE); LEUKOCYTE ESTERASE ,URINE NEGATIVE (NEGATIVE); NITRATE,URINE NEGATIVE (NEGATIVE); OCCULT BLOOD,URINE TRACE (NEGATIVE); PROTEIN,URINE POS 1+ (NEGATIVE); UROBILINOGEN,URINE 0.2 mg/dL (<=1.0)
[2019-05-26] MEDS ORDERED: INSULIN LISPRO 100 UNITS/ML SQ PRN (14:15)
[2019-05-26] MEDS ORDERED: DEXTROSE 50%-WATER 25 GM/50 ML SYRINGE IVP PRN (14:15)
[2019-05-26] MEDS ORDERED: ASPIRIN 81 MG CHEWABLE TABLET PO ONE (14:15)
[2019-05-26] MEDS ORDERED: ACETAMINOPHEN 325 MG TABLET PO PRN (14:15)
[2019-05-26] MEDS ORDERED: 0.9% SODIUM CHLORIDE 10 ML SYRINGE IVP PRN (14:15)
[2019-05-26] MEDS ORDERED: ONDANSETRON HCL 4 MG/2 ML VIAL IVP PRN (14:15)
[2019-05-26 14:23] LABS: BACTERIA,URINE None Seen /HPF (None Seen); RBC,URINE 0-2 /HPF (0-2); WBC,URINE None Seen /HPF (0-5)
[2019-05-26 15:25] LABS: GLUCOSE,POINT OF CARE 126 MG/DL (70-110)
[2019-05-26 16:46] VITALS: BP 177/78
[2019-05-26] MEDS ORDERED: CloNIDine HCL 0.1 MG TABLET PO PRN (18:15)
[2019-05-26 18:26] LABS: GLUCOMETER DEV NAME(LOC) 5S.2A; GLUCOSE,POINT OF CARE 150 MG/DL (70-110)
[2019-05-26 18:29] VITALS: BP 177/78
[2019-05-26 20:05] VITALS: BP 126/68
[2019-05-26] MEDS: DOCUSATE SODIUM 100 MG CAPSULE PO SCH (20:41)
[2019-05-26 23:56] VITALS: BP 120/68
[2019-05-27] MEDS: ACETAMINOPHEN 325 MG TABLET PO PRN ×2 (00:13→06:48)
[2019-05-27 05:10] VITALS: BP 138/90
[2019-05-27 05:43] LABS: GLUCOMETER DEV NAME(LOC) 5N.2; GLUCOSE,POINT OF CARE 119 MG/DL (70-110)
[2019-05-27 07:12] VITALS: BP 134/68
[2019-05-27] MEDS: DOCUSATE SODIUM 100 MG CAPSULE PO SCH (08:22)
[2019-05-27] MEDS ORDERED: ATORVASTATIN CALCIUM 40 MG TABLET PO SCH (09:00)
[2019-05-27] MEDS ORDERED: FAMOTIDINE 20 MG TABLET PO SCH (09:00)
[2019-05-27 10:51] VITALS: BP 123/76
[2019-05-27 11:42] LABS: GLUCOMETER DEV NAME(LOC) 5N.2; GLUCOSE,POINT OF CARE 139 MG/DL (70-110)
[2019-05-27 11:42] LABS: GLUCOMETER DEV NAME(LOC) 5N.2; GLUCOSE,POINT OF CARE 176 MG/DL (70-110)
[2019-05-27] MEDS ORDERED: DICLOFENAC SODIUM 0.1% 2.5 ML OPHTHALMIC SOLUTION OD SCH (13:00)
[2019-05-27] MEDS ORDERED: GATIFLOXACIN 0.5% 2.5 ML OPHTHALMIC SOLUTION OD SCH (13:00)
[2019-05-27] MEDS ORDERED: PrednisoLONE ACETATE 1% 5 ML OPHTHALMIC SUSPENSION OD SCH (21:00)
== END 2019-05-27 15:45 | disposition home or self-care (01) | DRG 93 ==
LOC: EMS 11:43 → 5S 15:23
PROVIDERS: ADMIT Internal Medicine; ATTEND Internal Medicine
DX: R29.810 Facial weakness (principal); E11.9 Type 2 diabetes mellitus without complications; I25.10 Atherosclerotic heart disease of native coronary artery without angina pectoris; E78.5 Hyperlipidemia, unspecified; J45.909 Unspecified asthma, uncomplicated; I11.0 Hypertensive heart disease with heart failure; I50.9 Heart failure, unspecified; E11.65 Type 2 diabetes mellitus with hyperglycemia; N40.0 Benign prostatic hyperplasia without lower urinary tract symptoms; Z79.4 Long term (current) use of insulin; Z79.82 Long term (current) use of aspirin; Z79.899 Other long term (current) drug therapy; Z82.49 Family history of ischemic heart disease and other diseases of the circulatory system; Z98.41 Cataract extraction status, right eye; Z83.3 Family history of diabetes mellitus
CPT/HCPCS: 70551; 83605; 93005; 93306; 93880; 97116; 97162; 97165; 97530; 99291; G0480